=== PATIENT | female | born 1985 | race Two or more races ===

== ENCOUNTER → 2017-04-06 | Outpatient (CLI) | payer OTHER ==
--- NOTE | 2017-04-06 10:40 | RADRPT ---
PROCEDURE: XR left knee. CLINICAL INDICATION: Knee pain TECHNIQUE: AP weightbearing, PA weightbearing, lateral weightbearing and sunrise views are availab le for review. COMPARISON: None available FINDINGS: There is a small spur (probable post traumatic) involving the medial aspect of the patella. The osseous structures are otherwise normal in mineralization, architecture and alignment. No fract ures are identified. No osseous lesions are identified. The joints are unremarkable. The soft tis sues are unremarkable. IMPRESSION: Unremarkable examination RPTAT: HGDB .Wero Blood MD, MD Date Time Electronically viewed and signed by .Wero Blood MD, MD on 04/06/2017 10:39 .B/
== END | disposition home or self-care (01) ==
LOC: HKI 09:52
PROVIDERS: ATTEND Orthopaedic Surgery
DX: M25.562 Pain in left knee (principal); S80.02XA Contusion of left knee, initial encounter
CPT/HCPCS: 73564; Z7500; G0463